=== PATIENT | female | born 1985 | race Two or more races ===

== ENCOUNTER → 2024-11-04 | Outpatient (CLI) | payer BC ==
[2024-11-04 10:38] LABS: Hematocrit 43.8 % (36.0-46.0); Hemoglobin 15.1 g/dL (12.2-16.2); Mean Corpuscular Hemoglobin 31.7 pg (28.0-32.0); Mean Corpuscular Volume 91.9 fL (80.0-100.0); Nucleated Red Blood Cells % 0.0 %
[2024-11-04 11:15] LABS: Ferritin 63.8 ng/mL (10-291)
[2024-11-04 11:19] LABS: Alanine Aminotransferase 14 U/L (7-40); Alkaline Phosphatase 54 U/L (46-116); Anion Gap 8 (5-15); BUN/Creatinine Ratio 13.6 (10.0-20.0); Blood Urea Nitrogen 11 mg/dL (9-23); Calcium 10.1 mg/dL (8.7-10.4); Carbon Dioxide 27 mmol/L (20-31); Chloride 103 mmol/L (98-107); Glucose 94 mg/dL (74-106); Potassium 4.2 mmol/L (3.5-5.1); Sodium 138 mmol/L (136-145); Total Protein 7.8 g/dL (5.7-8.2); Triglycerides 143 mg/dL (< 150)
[2024-11-04 11:21] LABS: Albumin 5.0 g/dL (3.2-4.8); Bilirubin, Total 0.6 mg/dL (0.2-1.0); Cholesterol 224 mg/dL (< 200); HDL Cholesterol 56 mg/dL (40-59)
[2024-11-05 11:08] LABS: Hepatitis B Surface Antigen Negative (Negative); Hepatitis C Antibody Negative (Negative)
[2024-11-05 11:24] LABS: Hepatitis A Total Antibody Negative (Negative)
[2024-11-05 12:07] LABS: Chlamydia Trachomatis, NAA Negative (Negative); Neisseria gonorrhoeae, NAA Negative (Negative)
== END | disposition home or self-care (01) ==
LOC: LAB 09:51
PROVIDERS: ATTEND Licensed Practical Nurse
DX: E55.9 Vitamin D deficiency, unspecified (principal); Z13.6 Encounter for screening for cardiovascular disorders; Z13.1 Encounter for screening for diabetes mellitus; Z00.01 Encounter for general adult medical examination with abnormal findings; Z13.29 Encounter for screening for other suspected endocrine disorder; Z13.220 Encounter for screening for lipoid disorders; Z11.3 Encounter for screening for infections with a predominantly sexual mode of transmission
CPT/HCPCS: 36415; 80053; 80061; 82043; 82274; 82306; 82607; 82728; 83036; 84443; 85025; 86704; 86706; 86708; 86780; 86803; 87340

== ENCOUNTER 2025-02-08 15:07 | Outpatient (CLI) | payer BC ==
[2025-02-08 15:20] LABS: Hematocrit 39.7 % (36.0-46.0); Hemoglobin 13.6 g/dL (12.2-16.2); Mean Corpuscular Hemoglobin 31.5 pg (28.0-32.0); Mean Corpuscular Volume 91.8 fL (80.0-100.0); Nucleated Red Blood Cells % 0.0 %
[2025-02-08 15:41] LABS: Alanine Aminotransferase 18 U/L (7-40); Albumin 4.4 g/dL (3.2-4.8); Alkaline Phosphatase 70 U/L (46-116); Anion Gap 10 (5-15); BUN/Creatinine Ratio 12.0 (10.0-20.0); Calcium 9.0 mg/dL (8.7-10.4); Carbon Dioxide 27 mmol/L (20-31); Chloride 105 mmol/L (98-107); Glucose 90 mg/dL (74-106); Potassium 4.0 mmol/L (3.5-5.1); Sodium 142 mmol/L (136-145); Total Protein 7.4 g/dL (5.7-8.2); Triglycerides 78 mg/dL (< 150)
[2025-02-08 15:42] LABS: Bilirubin, Total 0.7 mg/dL (0.2-1.0)
[2025-02-08 15:43] LABS: Blood Urea Nitrogen 9 mg/dL (9-23); Cholesterol 202 mg/dL (< 200); HDL Cholesterol 67 mg/dL (40-59)
== END 2025-02-08 17:00 | disposition home or self-care (01) ==
LOC: LAB 15:07
PROVIDERS: ATTEND Licensed Practical Nurse
DX: I10 Essential (primary) hypertension (principal); E78.5 Hyperlipidemia, unspecified
CPT/HCPCS: 36415; 80053; 80061; 82043; 85025